=== PATIENT | female | born 1990 | race Caucasian/White ===

== ENCOUNTER → 2017-01-15 | Outpatient (CLI) | payer OTHER ==
[2017-01-15 13:33] LABS: BASO % 0.2 % (0.0-1.0); EOS # 0.1 K/mm3 (0.0-0.50); EOS % 1.4 % (0.0-3.0); LARGE UNSTAINED CELL # 0.1 K/mm3 (0.0-0.4); LYMPH # 1.3 K/mm3 (1.5-6.5); LYMPH % 13.9 % (24.0-44.0); MEAN CORPUSCULAR HEMOGLOBIN 30.9 pg (27.0-33.0); MEAN CORPUSCULAR HGB CONC 34.1 g/dl (32.0-36.5); MEAN CORPUSCULAR VOLUME 90.6 fl (80.0-96.0); MONO # 0.3 K/mm3 (0.0-0.8); MONO % 2.8 % (0.0-5.0); NEUTROPHILS # 7.5 K/mm3 (1.8-7.7); NEUTROPHILS % 80.7 % (36.0-66.0); PLATELET COUNT, AUTOMATED 236 k/mm3 (150-450); WHITE BLOOD COUNT 9.3 K/mm3 (4.0-10.0)
[2017-01-15 13:50] LABS: HBsAg Prenatal NEGATIVE (NEGATIVE)
[2017-01-16 14:13] LABS: HIV SCRN NEGATIVE (NEGATIVE); HIV SCRN1 NEGATIVE (NEGATIVE)
[2017-01-16 14:14] LABS: CONTROL LINE INT CTR LINE PRESENT
== END ==
LOC: M SMT 11:46
PROVIDERS: ATTEND Specialist
DX: Z34.81 Encounter for supervision of other normal pregnancy, first trimester (principal); Z36 Encounter for antenatal screening of mother

== ENCOUNTER → 2017-02-26 | Outpatient (CLI) | payer OTHER ==
--- NOTE | 2017-02-27 05:03 | REP ---
Clinical: Anatomical evaluation. Comparison: None . Findings: Examination demonstrates a single live intrauterine in transverse (head to maternal right side) presentation. motion is identified by technologist. Placenta is noted anteriorly and grade zero without evidence for placenta previa or abruption. Amniotic fluid volume is normal. Cervix measures the 3.4 cm in length and appears closed. No evidence for nuchal cord. Gestational age by current measurements 17 weeks 2 days with IBRAHIMA 08/04/2017 . FHR equals 144 beats per minute. BPD 3.9 cm 17 weeks 6 days HC 13.9 cm 17 weeks 2 days AC 11.1 cm 16 weeks 6 days FL 2.4 cm 17 weeks 0 days HL 2.4 cm 17 weeks 3 days HC/AC ratio 1.25 Estimated weight 170 no grams ( the 36th percentile). Anatomical assessment demonstrates normal structures including cranium, choroid plexus, cavum, cerebellum/posterior fossa, lungs, diaphragm, stomach, cord insertion/three-vessel cord, kidneys/bladder, spine, and extremities. Impression: Single live intrauterine in transverse lie. Limited evaluation of the facial features and heart/ventricular outflow tracts due to positioning. Anatomical assessment is otherwise complete and normal. Signed by Ryan Norris MD 02/27/2017 04:54 A
== END ==
LOC: M SMT 10:32
PROVIDERS: ATTEND Specialist
DX: Z34.82 Encounter for supervision of other normal pregnancy, second trimester (principal); Z3A.17 17 weeks gestation of pregnancy

== ENCOUNTER → 2017-03-12 | Outpatient (CLI) | payer OTHER ==
--- NOTE | 2017-03-13 03:56 | REP ---
Clinical: Anatomical evaluation. Comparison: 02/26/2017 . Findings: Examination demonstrates a single live intrauterine in breech presentation. motion is identified by technologist. Placenta is noted anteriorly and grade zero without evidence for placenta previa or abruption. Amniotic fluid volume is normal. Cervix measures 3.4 cm in length and appears closed. Nuchal cord cannot be excluded Gestational age by first ultrasound 19 weeks 2 days with IBRAHIMA 08/04/2017 . FHR equals 141 beats per minute. Estimated weight 283 grams ( 46th percentile). Anatomical assessment demonstrates normal structures including cranium, choroid plexus, cavum, cerebellum/posterior fossa, lungs, diaphragm, stomach, cord insertion/three-vessel cord, kidneys/bladder, spine, and extremities. Impression: Single live intrauterine in breech presentation demonstrating appropriate interval growth. Nuchal cord cannot be excluded. Facial features and heart/ventricular outflow tracts are again limited in evaluation due to positioning. Signed by Ryan Norris MD 03/13/2017 03:48 A
== END ==
LOC: M SMT 10:01
PROVIDERS: ATTEND Advanced Practice Midwife
DX: Z34.82 Encounter for supervision of other normal pregnancy, second trimester (principal); Z36 Encounter for antenatal screening of mother

== ENCOUNTER → 2017-05-18 | Outpatient (CLI) | payer OTHER ==
[~2017-05-18] MED LIST: CLAR10CA3 PO; IBUP1TAB7 PO; LABE10TAB PO; PERCOCET PO; PRENTAB9 PO; ZANT1TAB PO
[2017-05-18 13:39] LABS: MEAN CORPUSCULAR HEMOGLOBIN 31.7 pg (27.0-33.0); MEAN CORPUSCULAR HGB CONC 34.2 g/dl (32.0-36.5); MEAN CORPUSCULAR VOLUME 92.5 fl (80.0-96.0); RED CELL DISTRIBUTION WIDTH 12.8 % (11.5-14.5); WHITE BLOOD COUNT 10.5 K/mm3 (4.0-10.0)
== END ==
LOC: M SMT 11:11
PROVIDERS: ATTEND Advanced Practice Midwife
DX: Z34.82 Encounter for supervision of other normal pregnancy, second trimester (principal); Z36 Encounter for antenatal screening of mother

== ENCOUNTER → 2017-05-25 | Outpatient (CLI) | payer OTHER | LOC: M SMT 13:45 | PROVIDERS: ATTEND Specialist | DX: O36 Maternal care for other fetal problems (principal) ==

== ENCOUNTER → 2017-05-28 | Outpatient (CLI) | payer OTHER ==
--- NOTE | 2017-05-29 04:37 | REP ---
Clinical: Anatomical evaluation. Comparison: 03/12/2017 . Findings: Examination demonstrates a single live intrauterine in cephalic presentation. motion is identified by technologist. Placenta is noted anteriorly and grade one without evidence for placenta previa or abruption. Amniotic fluid volume is normal. Cervix measures 4.1 cm in length and appears closed. No evidence for nuchal cord. Gestational age by first US 30 weeks 2 days with IBRAHIMA 08/04/2017 . Gestational age by current measurements 29 weeks 5 days with IBRAHIMA 08/08/2017 . FHR equals 147 beats per minute. Estimated weight 1528 grams ( 40th percentile). Anatomical assessment demonstrates normal structures including cranium, choroid plexus, cavum, cerebellum/posterior fossa, nose and lips, lungs, four-chamber heart/cough ventricular outflow tract, diaphragm, stomach, cord insertion/three-vessel cord, kidneys/bladder, spine, and extremities. Impression: Single live intrauterine in cephalic presentation demonstrating appropriate interval growth. Limited evaluation of the facial profile and right cardiac ventricular outflow tract again noted. Remainder of the anatomical assessment is complete. Signed by Ryan Norris MD 05/29/2017 04:28 A
== END ==
LOC: M SMT 11:18
PROVIDERS: ATTEND Specialist
DX: O36.5932 Maternal care for other known or suspected poor fetal growth, third trimester, fetus 2 (principal); Z3A.30 30 weeks gestation of pregnancy

== ENCOUNTER → 2017-06-20 | Outpatient (REF) | payer OTHER | LOC: M LAB REF 17:13 | PROVIDERS: ATTEND Advanced Practice Midwife | DX: Z34.83 Encounter for supervision of other normal pregnancy, third trimester (principal) ==

== ENCOUNTER → 2017-06-26 | Outpatient (CLI) | payer OTHER ==
--- NOTE | 2017-06-26 14:02 | REP ---
OB ULTRASOUND: Real-time sonographic evaluation of the gravid uterus is performed. There is a single living intrauterine gestation with an estimated gestation age 34 weeks 3 days based on the first ultrasound. EDC 07/25/2017. Today's measurements indicate appropriate growth. Biometry and Growth: BPD 85 mm = 34 weeks 2 days, 47th percentile HC 311 mm = 34 weeks 6 days, 56th percentile AC 289 mm = 32 weeks 6 days, 27th percentile FL 65 mm = 33 weeks 5 days, 38th percentile HC/AC ratio 1.08 within normal range. Estimated weight 2197 grams, 29th percentile. SEEN/GROSSLY UNREMARKABLE Lateral ventricles Yes Posterior fossa Yes Upper lip Yes Four-chamber heart Yes LVOT Yes RVOT Yes Stomach Yes Cord insertion No Three vessel cord Yes Kidneys Yes Bladder Yes Spine No Cervical length: The cervix is not well visualized due to low head position and shadowing from the cranium. heart rate: 139 beats per minute. position: Vertex Placenta: Anterior with no previa. Amniotic fluid: Within normal limits. ОЛЬГА 10.7 within normal range of 8.0 to 24.8. S/D ratio 2.74 within normal range. RI 0.64 within normal range. IMPRESSION: Appropriate growth as discussed above. Signed by Rudy Cerda MD 06/26/2017 04:44 P
== END ==
LOC: M SMT 11:31
PROVIDERS: ATTEND Advanced Practice Midwife
DX: Z34.83 Encounter for supervision of other normal pregnancy, third trimester (principal); Z3A.34 34 weeks gestation of pregnancy

== ENCOUNTER → 2017-07-05 | Outpatient (REF) | payer OTHER | LOC: M LAB REF 10:58 | PROVIDERS: ATTEND Specialist | DX: Z34.83 Encounter for supervision of other normal pregnancy, third trimester (principal); Z36 Encounter for antenatal screening of mother ==

== ENCOUNTER 2017-07-19 19:33 | Outpatient (CLI) | payer OTHER ==
[~2017-07-19] VITALS: Ht 157.5 cm; Wt 83.0 kg
[2017-07-19] MEDS ORDERED: LABE10TAB PO (19:47)
[2017-07-19] MEDS ORDERED: ZANT1TAB PO (19:47)
[2017-07-19] MEDS ORDERED: CLAR10CA3 PO (19:47)
--- NOTE | 2017-07-19 20:49 | ED PDOC ---
Provider Note 26-year-old 2, para 1001, estimated date of delivery 08/03/2017. Presents at 37 weeks 6 days with complaints of contractions since last night and possible leakage of fluid. Denies bleeding. Fetus is active. History is significant for a previous section in December 2015 for intrauterine growth restriction, chronic hypertension and arrest of dilation to 4 cm. Patient is scheduled for repeat section next week. Vital signs are stable. She is in no apparent distress. heart 150, moderate variability with accelerations, category 1 tracing. Abdomen is soft, gravid, longitudinal lie, cephalic presentation. No uterine contractions noted on the monitor. Sterile speculum exam moderate amount mucoid discharge. Negative pool, negative nitrazine, negative fern. Sterile vaginal exam 1 cm, 50% effaced, -1 station, cephalic. Assessment multipara at 37 weeks 6 days, previous section, not laboring category 1 tracing. Plan discharge home. Routine precautions. Signs of labor and warning signs reviewed. Keep appointment for section next week or call as indicated Lilli Rico CNM Jul 19, 2017 20:49
== END 2017-07-19 21:00 | disposition home or self-care (01) ==
LOC: M LDO 19:33
PROVIDERS: ATTEND Advanced Practice Midwife
DX: O26.893 Other specified pregnancy related conditions, third trimester (principal); Z3A.37 37 weeks gestation of pregnancy; O62.0 Primary inadequate contractions; O10.913 Unspecified pre-existing hypertension complicating pregnancy, third trimester

== ENCOUNTER 2017-07-26 05:14 | Inpatient (IN) | payer OTHER ==
[~2017-07-26] VITALS: Ht 157.5 cm; Wt 84.0 kg
[2017-07-26] VITALS (8 sets, daily range): BP systolic 129–162; BP diastolic 66–90
[~2017-07-26 05:14] MED LIST changes: -IBUP1TAB7 PO; -PERCOCET PO; -PRENTAB9 PO
[2017-07-26] MEDS ORDERED: LR 1,000 ML IV ONE (06:00)
[2017-07-26] MEDS ORDERED: BICITRA 30ML SOLN UDC PO ONE (06:00)
[2017-07-26] MEDS ORDERED: LR 1,000 ML IV SCH ×2 (06:30→09:45)
[2017-07-26] MEDS ORDERED: PERCOCET PO (07:28)
[2017-07-26] MEDS ORDERED: IBUP1TAB7 PO (07:31)
[2017-07-26] MEDS ORDERED: NALBUPHINE HCL 10 MG/ML AMP (J2300) IV PRN (07:38)
[2017-07-26] MEDS ORDERED: ONDANSETRON 4MG/2ML VIAL (J2405) IV PRN ×3 (07:38→09:45)
[2017-07-26] MEDS ORDERED: NALOXONE INJ 0.4 MG/1 ML VIAL (J2310) IV PRN ×2 (07:38)
[2017-07-26] MEDS ORDERED: METOCLOPRAMIDE INJ 10MG/2ML VIAL (J2765) IV PRN ×2 (07:38→09:45)
[2017-07-26] MEDS ORDERED: MORPHINE PRES-FREE INJ 10 MG/10 ML VIAL (J2274) As Ordered ONE (07:46)
[2017-07-26] MEDS ORDERED: PHENYLephrine HCL 500 MCG/5 ML (100MCG/ML) SYRINGE (J2370) As Ordered ONE (07:48)
[2017-07-26] MEDS ORDERED: ePHEDrine SULFATE 25 MG/5 ML(5MG/ML) SYRINGE As Ordered ONE (07:48)
[2017-07-26] MEDS ORDERED: OXYTOCIN INJ 10 UNITS/ML VIAL (J2590) As Ordered ONE (07:48)
[2017-07-26] MEDS ORDERED: KETOROLAC 60 MG/2 ML VIAL (J1885) As Ordered ONE (08:05)
[2017-07-26] MEDS ORDERED: ONDANSETRON 4MG/2ML VIAL (J2405) As Ordered ONE (08:05)
[2017-07-26] MEDS ORDERED: fentaNYL 100 MCG/2 ML INJECTION (J3010) As Ordered ONE (08:24)
[2017-07-26] MEDS ORDERED: PROMETHAZINE 25 MG TAB PO PRN (08:45)
[2017-07-26] MEDS ORDERED: OXYTOCIN DRIP 30 UNITS in APPROPRIATE DILUENT 1 EA IV SCH (08:45)
[2017-07-26] MEDS ORDERED: MEASLES,MUMPS,RUBELLA VACCINE INJ (MMR-II) (90707) SC SCH (08:45)
[2017-07-26] MEDS ORDERED: PERCOCET 5MG/325MG TAB PO PRN ×3 (08:45→09:45)
[2017-07-26] MEDS ORDERED: RHOGAM 300 MCG (1500 IU) INJ (J2790) IM SCH (08:45)
[2017-07-26] MEDS: DOCUSATE SODIUM 100 MG CAP PO SCH ×2 (09:00→20:28)
[2017-07-26] MEDS: PRENATAL VITAMINS CHEWABLE TABLET PO SCH (09:00)
[2017-07-26] MEDS ORDERED: fentaNYL 100 MCG/2 ML INJECTION (J3010) IV PRN (09:45)
[2017-07-26] MEDS: LABETALOL 100 MG TAB PO SCH ×2 (11:07→20:30)
[2017-07-26] MEDS: LORATADINE 10 MG TAB PO SCH (11:07)
[2017-07-26] MEDS: LR 1,000 ML IV SCH ×2 (11:09→16:36)
[2017-07-26] MEDS: KETOROLAC 30 MG/ML VIAL (J1885) IV SCH ×2 (14:42→20:27)
--- NOTE | 2017-07-26 16:13 | RO ---
DATE OF PROCEDURE: 07/26/2017 PREPROCEDURE DIAGNOSIS: POSTPROCEDURE DIAGNOSIS: PROCEDURE: Repeat section with a bilateral tubal ligation using [place]'s method. SURGEON: Génesis Moore MD FELT CUTTING MACHINE OPERATOR: Angus Hanks DO ANESTHESIA: Spinal. ESTIMATED BLOOD LOSS: 500 mL. URINE OUTPUT: 100 mL. INTRAVENOUS FLUIDS: 1600 mL of lactated Ringer's solution. OPERATIVE FINDINGS: Liveborn female infant. scores of 9 and 9. Weight was 2610 grams or 5 pounds 12 ounces. ANTIBIOTICS: 2 grams of Ancef. SPECIMENS: Bilateral segments of fallopian tube. DESCRIPTION OF PROCEDURE: After informed consent was obtained and written consent was reviewed, the patient was brought to the operating room where spinal anesthesia was placed. She was then placed in lithotomy position with a left lateral tilt. Villegas catheter was placed and set to gravity. She was then prepped and draped in a normal sterile fashion. A time-out in the operating room was then performed identifying the patient, procedure to be performed, as well as drug allergies. Anesthesia was tested and deemed to be adequate. A Pfannenstiel incision skin incision was then made along the previous skin incision and carried down to the underlying rectus fascia. The fascia was scored, and this incision was extended bilaterally. The fascia was then dissected off the underlying rectus muscles both superiorly and inferiorly. The rectus muscles were then in the midline. The peritoneum was then entered sharply. The bladder blade was then placed to retract back the bladder. A curvilinear incision was then made in the lower uterine segment. Amniotomy was then performed productive of clear fluid. head was then brought to the level of the incision, was delivered with the aid of a Kiwi vacuum atraumatically, followed by delivery of shoulders and corpus. Cord was clamped times two and was cut, and the was taken over to the warmer with a good cry. Placenta was then drained and delivered grossly intact. The uterus was then exteriorized and cleared of all clots and debris. Uterine incision was then closed in two layers using #0 Vicryl, first in a running locking fashion followed by a second layer for imbrication in a running nonlocking fashion. Several [id number] stitches were placed for hemostasis. Next, bilateral tubal ligation was then performed. The left fallopian tube was then followed out to the fimbriated end. A window was created in the mesosalpinx. This area was doubly ligated with #3-0 chromic and was excised. Good hemostasis noted. In a similar fashion, the right fallopian tube was followed out to the fimbriated end. A window was created in the mesosalpinx, and this area was doubly ligated using #3-0 chromic and was excised with good hemostasis noted. The uterus was then returned in the patient's abdomen and the surgical sites were inspected and noted to be hemostatic. The anterior peritoneum was then reapproximated using #3-0 Vicryl. The rectus muscles were reapproximated using #3-0 Vicryl. The fascia was then closed using #0 Vicryl in a running nonlocking fashion. Subcutaneous tissue was then irrigated and suctioned. Subcutaneous tissue was then reapproximated using #3-0 Vicryl. Several subdermal stitches were placed with #3-0 Vicryl and the skin was closed with #4-0 Monocryl in a subcuticular fashion. Incision was then clean and dry. Mastisol was applied above and below the incision, and then Steri-Strips were applied over the incision. The incision was then dressed. The patient was then taken to recovery in stable condition. Counts were correct. MTDD
[2017-07-27] VITALS (7 sets, daily range): BP systolic 117–144; BP diastolic 60–84
[2017-07-27] MEDS: LR 1,000 ML IV SCH ×3 (00:45→15:41)
[2017-07-27] MEDS: KETOROLAC 30 MG/ML VIAL (J1885) IV SCH ×2 (02:13→08:11)
[2017-07-27 07:26] LABS: MEAN CORPUSCULAR HEMOGLOBIN 32.1 pg (27.0-33.0); MEAN CORPUSCULAR VOLUME 89.2 fl (80.0-96.0); RED CELL DISTRIBUTION WIDTH 12.6 % (11.5-14.5); WHITE BLOOD COUNT 10.6 K/mm3 (4.0-10.0)
[2017-07-27] MEDS: LABETALOL 100 MG TAB PO SCH (08:12)
[2017-07-27] MEDS: PRENATAL VITAMINS CHEWABLE TABLET PO SCH (08:12)
[2017-07-27] MEDS: LORATADINE 10 MG TAB PO SCH (08:12)
[2017-07-27] MEDS: DOCUSATE SODIUM 100 MG CAP PO SCH (08:41)
--- NOTE | 2017-07-27 14:26 | DSES ---
DATE OF ADMISSION: 07/26/2017 DATE OF DISCHARGE: DISCHARGE DIAGNOSIS: Repeat section with bilateral tubal ligation, postoperative day #1, stable condition. SURGEON: Dr. Génesis Moore ICING MACHINE OPERATOR: Dr. Angus Hanks HISTORY: Ruby is a 26-year-old, 2, para 2-0-0-2 now, who was admitted on 07/26/2017 for repeat section and bilateral tubal ligation. The surgery was uncomplicated. Her postoperative course has been uncomplicated. She has been out of bed for self care, infant care and reynaldo care. Her pain is well controlled with by mouth medications. She denies nausea, vomiting, dizziness, palpitations, headache, blurred vision, epigastric pain. She requests discharge today due to having a toddler at home. She reports she has much family support to help her at home. The ocular care aide has decided to discharge the at approximately 1700. OBJECTIVE: Temperature 97.9, pulse 58, respirations 18, blood pressure with a manual cuff at 1400 was 133/84. Breasts are soft and nontender. Abdomen: Fundus firm one fingerbreadth below umbilicus. Her incision is well approximated. There is no drainage. No redness. No warmth. No edema. Steri-Strips are in place. Perineum is intact. Scant lochia rubra. Bilateral lower extremities with no edema. Homans' sign negative. Postoperative CBC today, 07/27/2017, hemoglobin 11.2, hematocrit 31.2 and platelets 175. ASSESSMENT: Repeat section postoperative day #1 stable condition. PLAN: Discharge the patient to home at 1700. Prescriptions have been E-prescribed by Dr. Moore to her pharmacy. I did review discharge instructions that include breast care, incision care, reynaldo care, activity and lifting restrictions, access to care, signs and symptoms of mastitis, uterine infection. She is to follow up at [facility] for a 2-week incision check and 6 week . CHRISTINE
[2017-07-27] MEDS ORDERED: IBUPROFEN 800 MG TAB PO SCH (16:00)
[2017-07-27] MEDS ORDERED: PRENTAB9 PO (16:39)
== END 2017-07-27 18:20 | disposition home or self-care (01) | DRG 540 ==
LOC: M LDI 05:14 → M OBS 10:32
PROVIDERS: ADMIT Obstetrics & Gynecology; ATTEND Obstetrics & Gynecology
PROC: 10D00Z1 Extraction of Products of Conception, Low, Open Approach (ICD-10-PCS; principal; 2017-07-26)
PROC: 0UB70ZZ Excision of Bilateral Fallopian Tubes, Open Approach (ICD-10-PCS; 2017-07-26)
DX: O34.211 Maternal care for low transverse scar from previous cesarean delivery (principal); Z30.2 Encounter for sterilization; Z37.0 Single live birth; Z3A.39 39 weeks gestation of pregnancy

== ENCOUNTER → 2017-10-19 | Outpatient (CLI) | payer OTHER ==
[~2017-10-19] MED LIST changes: +IBUP1TAB7 PO; +PERCOCET PO; +PRENTAB9 PO
--- NOTE | 2017-10-19 14:01 | REP ---
Cervical spine seven views: There are no comparisons. Vertebral body heights and alignment are normal. There is degenerative disc disease at C 06/07. The spaces are otherwise unremarkable. The pre vertebral soft tissues are normal. Facets are normally aligned. There is no bony foraminal encroachment. The odontoid view is unremarkable. Impression: C6-7 degenerative disc disease. Otherwise, negative cervical spine. Signed by Rudy Ledbetter MD 10/19/2017 01:52 P
== END ==
LOC: M ADAMS 13:03
PROVIDERS: ATTEND Physician Assistant Medical
DX: M54.12 Radiculopathy, cervical region (principal)

== ENCOUNTER → 2018-01-24 | Outpatient (REF) | payer OTHER | LOC: M LAB REF 12:07 | DX: N39.0 Urinary tract infection, site not specified (principal) | CPT/HCPCS: 87086 ==

== ENCOUNTER → 2019-03-04 | Outpatient (REF) | payer MEDICAID, OTHER ==
[~2019-03-04] MED LIST changes: +ZANT150T15 PO; -ZANT1TAB PO
[2019-03-04 20:27] LABS: ALBUMIN 4.3 GM/DL (3.2-5.2); BLOOD UREA NITROGEN 11 MG/DL (7-18); CALCIUM LEVEL 8.7 MG/DL (8.5-10.1); CARBON DIOXIDE LEVEL 29 MEQ/L (21-32); CHLORIDE LEVEL 105 MEQ/L (98-107); CREATININE FOR GFR 0.78 MG/DL (0.55-1.30); GLOMERULAR FILTRATION RATE > 60.0 (>60); GLUCOSE, FASTING 80 MG/DL (70-100); PHOSPHORUS LEVEL 2.8 MG/DL (2.5-4.9); POTASSIUM SERUM 3.7 MEQ/L (3.5-5.1); SODIUM LEVEL 139 MEQ/L (136-145)
== END ==
LOC: M SFHCADAM 16:26
PROVIDERS: ATTEND Physician Assistant Medical
DX: I10 Essential (primary) hypertension (principal)

== ENCOUNTER 2019-08-24 21:46 | Emergency (ER) | payer OTHER ==
[~2019-08-24] VITALS: Ht 157.5 cm; Wt 82.7 kg
[2019-08-24] MEDS ORDERED: LISI10TA4 PO (22:06)
[2019-08-24] MEDS ORDERED: KETOROLAC 30 MG/ML VIAL (J1885) IV ONE (23:00)
[2019-08-24] MEDS ORDERED: NS 1,000 ML IV ONE (23:00)
[2019-08-24 23:39] LABS: BASO # 0.1 10^3/uL (0.0-0.2); BASO % 0.3 % (0.0-1.0); EOS # 0.2 10^3/uL (0.0-0.5); EOS % 1.1 % (0.0-3.0); HEMATOCRIT 45.1 % (36.0-47.0); HEMOGLOBIN 15.4 g/dl (12.0-15.5); LYMPH # 2.3 10^3/uL (1.5-5.0); LYMPH % 10.5 % (24.0-44.0); MEAN CORPUSCULAR HEMOGLOBIN 31.2 pg (27.0-33.0); MEAN CORPUSCULAR HGB CONC 34.1 g/dl (32.0-36.5); MEAN CORPUSCULAR VOLUME 91.3 fl (80.0-96.0); MONO # 0.9 10^3/uL (0.0-0.8); MONO % 4.1 % (0.0-5.0); NEUTROPHILS # 17.9 10^3/uL (1.5-8.5); NEUTROPHILS % 83.5 % (36.0-66.0); PLATELET COUNT, AUTOMATED 269 10^3/uL (150-450); RED BLOOD COUNT 4.94 10^6/uL (4.00-5.40); WHITE BLOOD COUNT 21.5 10^3/uL (4.0-10.0)
--- NOTE | 2019-08-25 00:46 | REPVR ---
PROCEDURE INFORMATION: Exam: US Pelvis Complete, Transabdominal and US Pelvis, Transvaginal Exam date and time: 08/24/2019 12:16 AM Clinical history: 28 years old, female; Pelvic pain; Additional info: Suprapubic pain, vag discharge TECHNIQUE: Imaging protocol: Real-time transabdominal and transvaginal pelvic ultrasound (complete) with image documentation. Transvaginal imaging was used for better evaluation of the endometrium and adnexa. COMPARISON: US OBS FOLL UP OR REPEAT EACH GES 06/26/2017 11:42 AM FINDINGS: Uterus/cervix: The uterus measures 7.3 cm in its cephalocaudad dimension and 3.9 x 5.6 cm in its AP and lateral dimensions transabdominal. The uterus measures 7.8 cm in its cephalocaudad dimension and 3.6 x 5.1 cm in its AP and lateral dimensions transvaginal. The endometrium measures 7 mm transabdominal and 5 mm transvaginal. Right adnexa: The right ovary measures 2.8 x 2.1 x 2.4 cm and demonstrates arterial and venous blood flow. Left adnexa: The left ovary measures 3.3 x 4.7 x 3.7 cm and demonstrates a cyst measuring 2.6 x 3.5 x 2.2 cm. There is left ovarian arterial and venous blood flow Free fluid: None. Bladder: The urinary bladder is empty. IMPRESSION: 1. Left ovarian cyst measuring 2.6 x 3.5 x 2.2 cm. 2. Otherwise negative pelvic sonogram. Electronically signed by: Boni Ramirez On 08/25/2019 00:45:51 AM
[2019-08-25] MEDS ORDERED: LISINOPRIL 10 MG TAB PO ONE (01:00)
[2019-08-25] MEDS ORDERED: KETOROLAC TROMETHAMINE 10 MG TAB PO ONE (01:00)
[2019-08-25] MEDS ORDERED: LISI10TA4 PO (01:01)
[2019-08-25] MEDS ORDERED: KETO10TAB PO (01:01)
[2019-08-25 01:26] VITALS: BP 135/72
== END 2019-08-25 01:25 | disposition home or self-care (01) ==
LOC: M ED 21:46
DX: D72.829 Elevated white blood cell count, unspecified (principal); N83.202 Unspecified ovarian cyst, left side; R10.30 Lower abdominal pain, unspecified; I10 Essential (primary) hypertension; F17.210 Nicotine dependence, cigarettes, uncomplicated; Z79.899 Other long term (current) drug therapy
CPT/HCPCS: 76830; 76856; 80047; 81001; 84702; 85025; 87086; 93976; 96374; 99284; J1885

== ENCOUNTER → 2022-05-15 | Outpatient (REF) | payer OTHER ==
[~2022-05-15] MED LIST changes: +KETO10TAB PO; +LABE100T4 PO; -LABE10TAB PO; +LISI10TA22 PO
== END ==
LOC: M LAB REF 17:15
PROVIDERS: ATTEND Nurse Practitioner Family
DX: Z01.419 Encounter for gynecological examination (general) (routine) without abnormal findings (principal)

== ENCOUNTER → 2022-07-12 | Outpatient (CLI) | payer OTHER ==
[~2022-07-12] MED LIST changes: -LABE100T4 PO; +LABE100T6 PO
[2022-07-12 12:56] LABS: BASO # 0.1 10^3/uL (0.0-0.2); BASO % 0.8 % (0.0-1.0); EOS # 0.1 10^3/uL (0.0-0.5); EOS % 1.5 % (0.0-3.0); HEMOGLOBIN 15.4 g/dl (12.0-15.5); LYMPH # 1.7 10^3/uL (1.5-5.0); LYMPH % 23.1 % (24.0-44.0); MEAN CORPUSCULAR HEMOGLOBIN 30.9 pg (27.0-33.0); MEAN CORPUSCULAR HGB CONC 32.8 g/dl (32.0-36.5); MEAN CORPUSCULAR VOLUME 94.2 fl (80.0-96.0); MONO # 0.5 10^3/uL (0.0-0.8); MONO % 6.4 % (2.0-8.0); NEUTROPHILS # 4.9 10^3/uL (1.5-8.5); NEUTROPHILS % 67.8 % (36.0-66.0); PLATELET COUNT, AUTOMATED 266 10^3/uL (150-450); RED BLOOD COUNT 4.99 10^6/uL (4.00-5.40); WHITE BLOOD COUNT 7.2 10^3/uL (4.0-10.0)
[2022-07-12 13:47] LABS: ALBUMIN 3.9 GM/DL (3.2-5.2); ALT/SGPT 49 U/L (12-78); BILIRUBIN,TOTAL 0.4 MG/DL (0.2-1.0); BLOOD UREA NITROGEN 11 MG/DL (7-18); CALCIUM LEVEL 9.3 MG/DL (8.5-10.1); CARBON DIOXIDE LEVEL 28 MEQ/L (21-32); CHLORIDE LEVEL 104 MEQ/L (98-107); CREATININE FOR GFR 0.88 MG/DL (0.55-1.30); GLOMERULAR FILTRATION RATE > 60.0 (>60); GLUCOSE, FASTING 82 MG/DL (70-100); LIPASE 69 U/L (73-393); POTASSIUM SERUM 4.1 MEQ/L (3.5-5.1); SODIUM LEVEL 137 MEQ/L (136-145); THYROID STIMULATING HORMONE 0.504 uIU/ML (0.358-3.740); TOTAL PROTEIN 7.1 GM/DL (6.4-8.2)
== END ==
LOC: M ADAMS 09:36
PROVIDERS: ATTEND Nurse Practitioner Family
DX: R10.30 Lower abdominal pain, unspecified (principal)

== ENCOUNTER → 2022-07-24 | Outpatient (CLI) | payer OTHER | LOC: M RAD 10:19 | PROVIDERS: ATTEND Nurse Practitioner Family | DX: N83.202 Unspecified ovarian cyst, left side (principal); R10.30 Lower abdominal pain, unspecified ==

== ENCOUNTER → 2023-03-02 | Outpatient (CLI) | payer OTHER ==
[~2023-03-02] MED LIST changes: +IBUP200C28 PO; +PYRI1TAB5 PO
== END ==
LOC: M EKG 08:32
PROVIDERS: ATTEND Anesthesiology
DX: Z01.818 Encounter for other preprocedural examination (principal); J45.909 Unspecified asthma, uncomplicated

== ENCOUNTER 2023-03-07 06:08 | Day surgery (SDC) | payer OTHER ==
[~2023-03-07] VITALS: Ht 157.5 cm; Wt 86.5 kg
[~2023-03-07 06:08] MED LIST changes: -PYRI1TAB5 PO; +ceFAZolin SOD 2 GM in IV 1 EA IV ONE
[2023-03-07] MEDS ORDERED: PYRI1TAB5 PO (06:38)
[2023-03-07] MEDS ORDERED: LR 1,000 ML IV SCH ×2 (06:40→09:40)
[2023-03-07 06:53] LABS: HEMATOCRIT 47.2 % (36.0-47.0); HEMOGLOBIN 15.7 g/dl (12.0-15.5); MEAN CORPUSCULAR HEMOGLOBIN 30.4 pg (27.0-33.0); MEAN CORPUSCULAR HGB CONC 33.3 g/dl (32.0-36.5); MEAN CORPUSCULAR VOLUME 91.5 fl (80.0-96.0); PLATELET COUNT, AUTOMATED 226 10^3/uL (150-450); RED BLOOD COUNT 5.16 10^6/uL (4.00-5.40); WHITE BLOOD COUNT 9.2 10^3/uL (4.0-10.0)
[2023-03-07] MEDS ORDERED: ROCURONIUM BROMIDE 50MG/5ML VIAL As Ordered ONE (07:09)
[2023-03-07] MEDS ORDERED: propofoL 200 MG/20 ML VIAL As Ordered ONE (07:09)
[2023-03-07] MEDS ORDERED: fentaNYL 250 MCG/5 ML INJECTION As Ordered ONE (07:09)
[2023-03-07] MEDS ORDERED: LIDOCAINE 2% INJ 100 MG/5 ML SYRINGE As Ordered ONE (07:09)
[2023-03-07] MEDS ORDERED: MIDAZOLAM INJ 2MG/2ML VIAL As Ordered ONE (07:10)
[2023-03-07] MEDS ORDERED: BUPIVACAINE HCL 0.25% 30ML VIAL As Ordered ONE (07:18)
[2023-03-07] MEDS ORDERED: METHYLENE BLUE 0.5% (5MG/ML) 10 ML AMP (PROVAYBLUE) As Ordered ONE (07:18)
[2023-03-07] MEDS ORDERED: HYDROmorphone HCL 2MG/ML 1ML VIAL As Ordered ONE (08:54)
[2023-03-07] MEDS ORDERED: KETOROLAC 60MG 2ML VIAL As Ordered ONE (09:22)
[2023-03-07] MEDS ORDERED: ONDANSETRON 4MG 2ML VIAL As Ordered ONE (09:22)
[2023-03-07] MEDS ORDERED: hydrALAZINE 20MG/ML 1ML VIAL As Ordered ONE (09:22)
[2023-03-07] MEDS ORDERED: ACETAMINOPHEN 1000MG 100ML IV BAG As Ordered ONE (09:22)
[2023-03-07] MEDS ORDERED: SUGAMMADEX SODIUM 500 MG/5 ML VIAL (BRIDION) As Ordered ONE (09:27)
[2023-03-07] MEDS ORDERED: ONDANSETRON 4MG 2ML VIAL IV PRN (09:40)
[2023-03-07] MEDS ORDERED: METOCLOPRAMIDE INJ 10MG/2ML VIAL IV PRN (09:40)
[2023-03-07] MEDS ORDERED: fentaNYL 100 MCG/2 ML INJECTION IV PRN (09:40)
[2023-03-07] MEDS ORDERED: HYDROMORPHONE HCL 0.5 MG/ 0.5 ML SYRINGE IV PRN (09:40)
[2023-03-07] MEDS ORDERED: PROMETHAZINE 25MG/ML 1ML VIAL IV PRN (09:40)
[2023-03-07] MEDS ORDERED: oxyCODONE 5MG TAB PO PRN (09:40)
[2023-03-07] MEDS ORDERED: PERCOCET 5MG/325MG TAB PO PRN (10:40)
[2023-03-07 12:15] VITALS: BP 140/77
[2023-03-07] MEDS ORDERED: KETOROLAC 30 MG/ML 1ML VIAL IV SCH (16:00)
== END 2023-03-07 11:55 | disposition home or self-care (01) ==
LOC: M SDC 06:08
PROVIDERS: ATTEND Obstetrics & Gynecology
DX: N93.9 Abnormal uterine and vaginal bleeding, unspecified (principal); N92.0 Excessive and frequent menstruation with regular cycle; F17.210 Nicotine dependence, cigarettes, uncomplicated; Z79.899 Other long term (current) drug therapy; I10 Essential (primary) hypertension
CPT/HCPCS: 36415; 58571; 81025; 85027; 86850; 86870; 86900; 86901; 88307; J0131; J0360; J0690; J1100; J1170; J1885; J2250; J2405; J3010; S2900

== ENCOUNTER 2023-10-14 21:10 | Emergency (ER) | payer OTHER ==
[~2023-10-14] VITALS: Ht 157.5 cm; Wt 85.7 kg
[~2023-10-14 21:10] MED LIST changes: +PYRI1TAB5 PO; -ceFAZolin SOD 2 GM in IV 1 EA IV ONE
[2023-10-14 21:44] LABS: APPEARANCE, URINE CLEAR (CLEAR); BACTERIA, URINE AUTO 1+ (NEGATIVE); BILIRUBIN, URINE AUTO NEGATIVE (NEGATIVE); BLOOD, URINE BLOOD 3+ (NEGATIVE); COLOR, URINE AMBER (YELLOW); GLUCOSE, URINE (UA) AUTO NEGATIVE (NEGATIVE); KETONE, URINE AUTO NEGATIVE (NEGATIVE); LEUKOCYTE ESTERASE, URINE AUTO NEGATIVE (NEGATIVE); MUCUS, URINE SMALL (NEGATIVE); NITRITE, URINE AUTO POSITIVE (NEGATIVE); PROTEIN, URINE AUTO 2+ mg/dL (NEGATIVE); RBC, URINE AUTO 156 /HPF (0-3); SPECIFIC GRAVITY URINE AUTO 1.013 (1.002-1.035); SQUAMOUS EPITHELIAL CELL UR AU 2 /HPF (0-6); WBC, URINE AUTO 19 /HPF (0-3)
[2023-10-14] MEDS ORDERED: PHENAZOPYRIDINE 100 MG TAB PO ONE (23:40)
[2023-10-14] MEDS ORDERED: CIPROFLOXACIN 500MG TABLET PO ONE (23:40)
[2023-10-14] MEDS ORDERED: PYRI1TAB5 PO (23:45)
[2023-10-14] MEDS ORDERED: CIPR-249 PO (23:45)
[2023-10-14 23:54] VITALS: BP 147/89; TEMP 97.3; O2SAT 99
== END 2023-10-14 23:56 | disposition home or self-care (01) ==
LOC: M ED 21:10
DX: N39.0 Urinary tract infection, site not specified (principal); I10 Essential (primary) hypertension; F17.210 Nicotine dependence, cigarettes, uncomplicated; Z79.899 Other long term (current) drug therapy; Z79.1 Long term (current) use of non-steroidal anti-inflammatories (NSAID)

== ENCOUNTER 2024-04-23 12:17 | Emergency (ER) | payer OTHER ==
[~2024-04-23] VITALS: Ht 157.5 cm; Wt 82.7 kg
[~2024-04-23 12:17] MED LIST changes: +CIPR-249 PO
[2024-04-23 16:39] VITALS: BP 154/89; TEMP 97.4; O2SAT 98
== END 2024-04-23 16:42 | disposition home or self-care (01) ==
LOC: M ED 12:17
DX: Z20.3 Contact with and (suspected) exposure to rabies (principal); I10 Essential (primary) hypertension; J45.909 Unspecified asthma, uncomplicated; F17.200 Nicotine dependence, unspecified, uncomplicated; Z87.42 Personal history of other diseases of the female genital tract; Z79.811 Long term (current) use of aromatase inhibitors

== ENCOUNTER 2024-04-24 12:45 | Emergency (ER) | payer OTHER ==
[~2024-04-24] VITALS: Ht 157.5 cm; Wt 82.1 kg
[2024-04-24] MEDS ORDERED: RABIES IMMUNE GLOBULIN 1500 INTERNATIONAL UNIT/5ML VIAL IM.IMMUN ONE (13:20)
[2024-04-24] MEDS ORDERED: RABIES IMMUNE GLOBULIN 300 INTERNATIONAL UNITS/1ML VIAL IM.IMMUN ONE (13:40)
[2024-04-24] MEDS: RABIES VACCINE HUMAN 2.5 INTERNATIONAL UNITS/ML VIAL IM.IMMUN ONE (13:59)
[2024-04-24] MEDS: RABIES IMMUNE GLOBULIN 1500 INTERNATIONAL UNIT/5ML VIAL IM.IMMUN ONE (14:14)
[2024-04-24] MEDS: RABIES IMMUNE GLOBULIN 300 INTERNATIONAL UNITS/1ML VIAL IM.IMMUN ONE (14:16)
[2024-04-24 14:18] VITALS: BP 152/88; TEMP 98.8; O2SAT 97
== END 2024-04-24 14:37 | disposition home or self-care (01) ==
LOC: M ED 12:45
DX: Z20.3 Contact with and (suspected) exposure to rabies (principal); Z29.14 Encounter for prophylactic rabies immune globulin; Z23 Encounter for immunization; I10 Essential (primary) hypertension; Z79.899 Other long term (current) drug therapy

== ENCOUNTER 2024-04-27 07:06 | Emergency (ER) | payer OTHER ==
[~2024-04-27] VITALS: Ht 157.5 cm; Wt 82.4 kg
[2024-04-27 07:07] VITALS: BP 176/116; TEMP 97.7; O2SAT 99
[2024-04-27] MEDS: RABIES VACCINE HUMAN 2.5 INTERNATIONAL UNITS/ML VIAL IM ONE (07:59)
== END 2024-04-27 08:14 | disposition home or self-care (01) ==
LOC: M ED 07:06
DX: Z29.14 Encounter for prophylactic rabies immune globulin (principal); Z23 Encounter for immunization; F17.210 Nicotine dependence, cigarettes, uncomplicated; I10 Essential (primary) hypertension; Z79.899 Other long term (current) drug therapy

== ENCOUNTER 2024-05-01 10:59 | Emergency (ER) | payer OTHER ==
[~2024-05-01] VITALS: Ht 157.5 cm; Wt 82.6 kg
[2024-05-01 11:00] VITALS: BP 167/68; TEMP 97.6; O2SAT 97
[2024-05-01] MEDS: RABIES VACCINE HUMAN 2.5 INTERNATIONAL UNITS/ML VIAL IM ONE (11:33)
== END 2024-05-01 11:59 | disposition home or self-care (01) ==
LOC: M ED 10:59
DX: Z29.14 Encounter for prophylactic rabies immune globulin (principal); Z23 Encounter for immunization; Z79.899 Other long term (current) drug therapy

== ENCOUNTER 2024-05-08 08:40 | Emergency (ER) | payer OTHER ==
[~2024-05-08] VITALS: Ht 157.5 cm; Wt 84.5 kg
[2024-05-08 08:46] VITALS: BP 176/100; TEMP 96.5; O2SAT 98
[2024-05-08] MEDS: RABIES VACCINE HUMAN 2.5 INTERNATIONAL UNITS/ML VIAL IM ONE (09:52)
== END 2024-05-08 10:05 | disposition home or self-care (01) ==
LOC: M ED 08:40
DX: Z29.14 Encounter for prophylactic rabies immune globulin (principal); Z23 Encounter for immunization; I10 Essential (primary) hypertension; Z79.899 Other long term (current) drug therapy

== ENCOUNTER → 2024-07-29 | Outpatient (REF) | payer OTHER ==
[2024-07-29 13:51] LABS: BASO # 0.1 10^3/uL (0.0-0.2); BASO % 0.6 % (0.0-1.0); EOS # 0.2 10^3/uL (0.0-0.5); EOS % 2.3 % (0.0-3.0); HEMATOCRIT 49.1 % (36.0-47.0); HEMOGLOBIN 16.4 g/dl (12.0-15.5); LYMPH # 1.8 10^3/uL (1.5-5.0); LYMPH % 21.9 % (24.0-44.0); MEAN CORPUSCULAR HEMOGLOBIN 31.2 pg (27.0-33.0); MEAN CORPUSCULAR HGB CONC 33.4 g/dl (32.0-36.5); MEAN CORPUSCULAR VOLUME 93.5 fl (80.0-96.0); MONO # 0.5 10^3/uL (0.0-0.8); MONO % 6.1 % (2.0-8.0); NEUTROPHILS # 5.8 10^3/uL (1.5-8.5); NEUTROPHILS % 68.6 % (36.0-66.0); PLATELET COUNT, AUTOMATED 241 10^3/uL (150-450); RED BLOOD COUNT 5.25 10^6/uL (4.00-5.40); WHITE BLOOD COUNT 8.4 10^3/uL (4.0-10.0)
[2024-07-29 13:52] LABS: FOLLICLE STIMULATING HORMONE 3.9 mIU/ML; IRON (FE) 167 UG/DL (50-170); LUTEINIZING HORMONE 8.1 mIU/ML
[2024-07-29 13:53] LABS: ALKALINE PHOSPHATASE 72 U/L (46-116); ALT/SGPT 95 U/L (7.0-40); AST/SGOT 38 U/L (<34); BILIRUBIN,TOTAL 0.6 MG/DL (0.3-1.2); BLOOD UREA NITROGEN 9 MG/DL (9-23); CALCIUM LEVEL 9.6 MG/DL (8.5-10.1); CARBON DIOXIDE LEVEL 29 MMOL/L (20-31); CHLORIDE LEVEL 106 MMOL/L (98-107); CHOLESTEROL LEVEL 222 MG/DL (<200); CREATININE FOR GFR 0.75 MG/DL (0.55-1.30); ESTRADIOL 131.4 PG/ML; FERRITIN 99.5 NG/ML (7.3-270.7); GLOMERULAR FILTRATION RATE > 60.0 (>60); GLUCOSE, FASTING 99 MG/DL (60-100); HDL CHOLESTEROL 31.7 MG/DL (>40); LDL CHOLESTEROL 126.7 MG/DL (<100); NON-HDL-C 190.3 MG/DL; PERCENT SATURATION 55.1 % (13.2-45.0); POTASSIUM SERUM 4.6 MMOL/L (3.5-5.1); SODIUM LEVEL 138 MMOL/L (136-145); THYROID STIMULATING HORMONE 0.748 uIU/ML (0.55-4.78); TOTAL IRON BINDING CAPACITY 303 UG/DL (250-425); TOTAL PROTEIN 7.1 G/DL (5.7-8.2); TRIGLYCERIDES LEVEL 318 MG/DL (<150)
[2024-07-29 13:54] LABS: TOTAL 25(OH) VITAMIN D 15.6 NG/ML (20.0-100.0)
[2024-07-29 13:55] LABS: FREE T4 1.38 NG/DL (0.89-1.76)
[2024-07-29 13:59] LABS: HEMOGLOBIN A1c 5.3 % (4.0-6.0)
== END ==
LOC: M LABDRWAD 13:12
PROVIDERS: ATTEND Nurse Practitioner Family
DX: I10 Essential (primary) hypertension (principal); F43.22 Adjustment disorder with anxiety; E66.01 Morbid (severe) obesity due to excess calories